=== PATIENT | male | born 1970 | race Caucasian/White ===

== ENCOUNTER → 2018-11-16 12:55 | Outpatient (CLI) | payer OTHER, SELFPAY ==
--- NOTE | 2018-11-16 13:04 | RAD_ITS ---
STUDY: X-RAY - LUMBAR SPINE REASON FOR EXAM: Male, 48 years old. Back pain and sciatica. TECHNIQUE: 5 view(s) of the lumbar spine were obtained. COMPARISON: None FINDINGS: Normal lumbar lordosis. There is no substantial scoliosis. There is a normal alignment of the vertebrae. Normal vertebral bodies and endplates. Moderate narrowing of the disc at L5-S1. Otherwise normal disc space heights. There is no demonstrated fracture. The soft tissue structures are unremarkable. RAD/L/S Spine Min 4 Views IMPRESSION: No acute abnormality. Degenerative disc disease L5-S1. Electronically Signed: Nam Torres MD at 15:48 EDT , Service support ,
== END ==
PROVIDERS: Family Provider Family Medicine; PCP Family Medicine; Referring Provider Family Medicine; Visit Provider Family Medicine
DX: M54.42 Lumbago with sciatica, left side (principal)
CPT/HCPCS: 72110

== ENCOUNTER → 2021-05-17 16:04 | Outpatient (CLI) | payer OTHER, SELFPAY ==
--- NOTE | 2021-05-17 16:10 | RAD_ITS ---
STUDY: X-RAY - BILATERAL RIBS WITH CHEST REASON FOR EXAM: Male, 51 years old. RIB INJURY TECHNIQUE - RIBS: 8 view(s) of the ribs. TECHNIQUE - CHEST: Single PA view of the chest. COMPARISON: None. FINDINGS - RIBS : Normal visualized ribs without a demonstrated fracture. FINDINGS - CHEST: The lungs are clear and expanded. There is no demonstrated pleural abnormality. Normal size heart. Normal mediastinum and dorene. Normal visualized pulmonary arteries. Normal visualized aortic arch and descending thoracic aorta. Normal visualized thoracic spine. Normal visualized ribs, clavicles, and shoulders. There is no demonstrated abnormality of the visualized soft tissue structures of the upper abdomen. RAD/Ribs Lucho Min 4V w/PA Chest IMPRESSION: RIBS: Normal x-ray examination of the bilateral ribs. CHEST: Normal x-ray examination of the chest. Electronically Signed: Jose Albert MD at 6:24 EDT Tel , Service support ,
== END ==
PROVIDERS: PCP Family Medicine; Referring Provider Family Medicine; Visit Provider Family Medicine
DX: S29.9XXA Unspecified injury of thorax, initial encounter (principal)
CPT/HCPCS: 71111

== ENCOUNTER 2024-02-02 09:13 | Day surgery (SDC) | payer OTHER, SELFPAY ==
[2024-02-02 09:39] VITALS: BP 134/91; PULSE 69; RESP 16; TEMP 36.3; O2SAT 95; BMI 29.0
[2024-02-02] MEDS: Lactated Ringers 1,000 ML 15 ML IV (09:53)
--- NOTE | 2024-02-02 10:19 | H&P.OPEN ---
HPI - General HPI Narrative CAROL GUAMAN, is a 53 M who presents for screening colonoscopy. He has never had a colonoscopy in the past. He denies abdominal pain or blood in the stool. No family history of colon cancer. PFSH Medical History History of steroid therapy Non-smoker Home Medications ?Medication ?Instructions ?Recorded ?Last Taken ?Type calcium carb, gluc 500 mg 3 tab PO DAILY 12/30/23 Unknown History calcium-magnesium gluc, oxide 250 mg tablet Allergy/AdvReac Type Severity Reaction Status Date / Time No Known Allergies Allergy Verified 02/02/24 09:37 Family History (Updated 12/30/23 @ 12:29 by Tyra Auguste) Father Brain cancer Hemochromatosis Surgical History (Updated 12/30/23 @ 12:27 by Tyra Auguste) Hx of hernia repair History of elbow surgery Social History (Updated 12/30/23 @ 12:29 by Tyra Auguste) household members: spouse and children current occupational status: employed 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, 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 Smoking Status: Never smoker alcohol intake: never substance use type: does not use Past Medical/Surgical History Planned Operation Planned Operative Procedure(s): COLONOSCOPY-OA Previous Hospitalizations/Surgeries HX Hospitalizations: No Any Problems With Anesthesia: No You/Your Family Experience Fever (Hyperthermia) With Anes: No Cholinesterase deficiency: No Cardiovascular Hx Hypertension: No Respiratory Hx Sleep Apnea: No Hx Respiratory Tract Infection/Cold (presently): No Do You Snore Loudly (louder than talking or can be heard): No Do You Often Feel Tired/ Fatigued/ Sleepy Dring Daytime?: No Has Anyone Observed You Stop Breathing During Sleep?: No Result (for STOP score): Negative Smoking Status: Never smoker Neurological Does patient have nerve stimulator: No Miscellaneous Recent Exposure to Contagious Disease: No Allergies No Known Allergies Allergy (Verified 02/02/24 09:37) Discharge Is Pt Admitted From a Snf, or a Fdc: No After D/C, Where Do you Plan to Go: Return Home Vital Signs Vital Signs Vital Signs: 02/02/24 09:39 02/02/24 09:39 Temperature 97.3 F L Temperature Source Temporal Pulse Rate 69 Respiratory Rate 16 Respiratory Pattern Normal Blood Pressure 134/91 H Blood Pressure Mean 105 Blood Pressure Source Monitor Blood Pressure Position Sitting Blood Pressure Location Left Arm Pulse Ox 95 Oxygen Delivery Method Room Air Weight Weight: 213 lb 13.574 oz Body Mass Index (BMI) 29.0 Physical Exam Const alert and oriented x3 HEENT normocephalic Eyes PERRL Resp normal respiratory effort and normal air movement Cardio regular rate and regular rhythm GI soft to palpation, non-tender and non-distended Extremity normal to inspection Assessment & Plan Assessment/Plan (1) Encounter for screening for malignant neoplasm of colon: PLAN: I explained endoscopy in detail to the patient. I explained the risks including but not limited to stroke or heart attack with anesthesia, perforation of the GI tract, bleeding, infection. I explained that any of these could necessitate further emergency surgery. The patient understands and all questions were answered sufficiently. The patient wishes to proceed with procedure. Meliton Villasenor MD Pager: [facility] [address] [place] [address] [address] [place] [address] Office: Surgery Risks - Colonoscopy Risks Include but are not Limited To: Risks include but are not limited to: Bleeding, perforation requiring further surgery, inability to complete colonoscopy requiring barium enema.
--- NOTE | 2024-02-02 10:44 | OP.CCLET_ITS ---
02/02/2024 Alonzo Ferguson [address] [place] [address] Re : Colonoscopy procedure for [facility] Dear Dr. Ferguson This procedure was performed on Friday, February 02, 2024. My impressions and recommendations are as follows: Impressions : - The entire examined colon is normal on direct and retroflexion views. - No specimens collected. Recommendations : - Discharge patient to home. - Resume previous diet. - Continue present medications. - Repeat colonoscopy in 10 years for screening purposes. My findings are described in the full procedure note, which is enclosed. If I can be of further assistance, please feel free to contact me at Doctor phone number(s): , Work: . Sincerely, Meliton Villasenor MD 02/02/2024 10:44:07 AM This report has been signed electronically.
--- NOTE | 2024-02-02 10:44 | OP.COLON_ITS ---
Patient Name: Minh Pryor Procedure Date: 02/02/2024 10:20 AM Date of : 1970 Age: 53 Procedure: Colonoscopy Indications: Screening for colorectal malignant neoplasm Providers: Meliton Villasenor MD Medicines: Propofol per Anesthesia Patient Profile: This is a 53 year old male. Refer to note in patient chart for documentation of history and physical. Last Colonoscopy: none. The patient's first colonoscopy is today. Complications: No immediate complications. Procedure: Pre-Anesthesia Assessment: - Prior to the procedure, a History and Physical was performed, and patient medications and allergies were reviewed. The patient's tolerance of previous anesthesia was also reviewed. The risks and benefits of the procedure and the sedation options and risks were discussed with the patient. All questions were answered, and informed consent was obtained. Prior Anticoagulants: The patient has taken no anticoagulant or antiplatelet agents. After reviewing the risks and benefits, the patient was deemed in satisfactory condition to undergo the procedure. After I obtained informed consent, the scope was passed under direct vision. Throughout the procedure, the patient's blood pressure, pulse, and oxygen saturations were monitored continuously. The colonoscope was introduced through the anus and advanced to the cecum, identified by appendiceal orifice and ileocecal valve. The colonoscopy was performed without difficulty. The patient tolerated the procedure well. The quality of the bowel preparation was good. The ileocecal valve, appendiceal orifice, and rectum were photographed. Scope In: 10:28:34 AM Scope Withdrawal Time 0 hours 6 minutes 8 seconds Scope Out: 10:38:03 AM Total Procedure Duration Time 0 hours 9 minutes 29 seconds Findings: The entire examined colon appeared normal on direct and retroflexion views. Impression: - The entire examined colon is normal on direct and retroflexion views. - No specimens collected. Recommendation: - Discharge patient to home. - Resume previous diet. - Continue present medications. - Repeat colonoscopy in 10 years for screening purposes. Procedure Code(s): --- Professional --- 90752, Colonoscopy, flexible; diagnostic, including collection of specimen(s) by brushing or washing, when performed (separate procedure) Diagnosis Code(s): --- Professional --- Z12.11, Encounter for screening for malignant neoplasm of colon CPT copyright 2021 [employer]. All rights reserved. The codes documented in this report are preliminary and upon typewriter assembly and parts inspector review may be revised to meet current compliance requirements. Meliton Villasenor MD 02/02/2024 10:44:07 AM This report has been signed electronically. Number of Addenda: 0 Note Initiated On: 02/02/2024 10:20 AM
[2024-02-02 10:45] VITALS: BP 115/75; BP 134/91; PULSE 56; RESP 16; TEMP 36.3; O2SAT 93
[2024-02-02 10:50] VITALS: BP 118/77; BP 134/91; PULSE 59; RESP 16; O2SAT 94
[2024-02-02 10:55] VITALS: BP 118/77; BP 134/91; PULSE 55; RESP 16; TEMP 36.2; O2SAT 93
[2024-02-02 11:09] VITALS: BP 134/91
== END 2024-02-02 11:11 | disposition home or self-care (01) ==
LOC: EN 09:14 → AC 09:15
PROVIDERS: PCP Family Medicine; Referring Provider Surgery; Visit Provider Surgery
PROC: 0DJD8ZZ Inspection of Lower Intestinal Tract, Via Natural or Artificial Opening Endoscopic (ICD-10-PCS; CPT 45378; principal; 2024-02-02 10:10)
DX: Z12.11 Encounter for screening for malignant neoplasm of colon (principal)
CPT/HCPCS: 45378; J7120; J2405